=== PATIENT | female | born 2000 | race Caucasian/White ===

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

== ENCOUNTER 2022-12-14 11:13 | Outpatient (CLI) | payer MEDICAID, SELFPAY ==
--- NOTE | 2022-12-14 | US_ITS ---
WS: [id number] OBSTETRICAL ULTRASOUND COMPLETE HISTORY: SUPERVISION OF OTHER NORMAL THIRD TRIMESTER COMPARISON: None available. Single intrauterine gestation in Cephalic presentation. Cervix is Closed and normal length. Cervical length is 3.7 cm. Normal amount of amniotic fluid surrounds the fetus. Placenta: Anterior, no previa or abruption. Placenta grade 1 Heart: 139 BPM. Four chambers are identified. Normal LVOT. The RVOT is more difficult to visualize bu t normal size of the aorta and pulmonary artery. On the 3 vessel tracheal view the SVC is very small caliber. I suspect this is probably due to difficulty obtaining true axial imaging from late gestatio nal age. Anatomy: Limited evaluation of the spine and intracranial structures. spine is posterior during the entire examination. kidneys, stomach and urinary bladder are unremarkable. Limited u mbilical cord insertion site. The abdominal wall is not well seen due to late gestational age. 4 extremities are present. profile: Unremarkable. Gender: Male. measurements: BPD = 8.5 cm = 34w0d; 48th percentile HC = 30.7 cm = 34w1d; 17th percentile AC = 29.3 cm = 33w2d; 32nd percentile FL = 6.5 cm = 33w5d; 31st percentile EFW: 2217 g. 37th percentile Biometry is internally concordant. AGA by ultrasound: 33 weeks 5 days YOLA by ultrasound: 01/27/2023 US/US OB >= 14 weeks fetus [id number] IMPRESSION: 1. Single intrauterine gestation of 33 weeks 5 days with an YOLA of 01/27/2023. 2. Anatomic screening survey is limited by late gestational age. In particular the abdominal wall and cord insertion site, RVOT and spine are poorly vi sualized. Remaining anatomy appears appropriate. 3. Normal amniotic fluid.
== END 2022-12-14 11:14 | disposition home or self-care (01) ==
PROVIDERS: PCP Nurse Practitioner Family; Visit Provider Family Medicine
DX: O26.893 Other specified pregnancy related conditions, third trimester (principal); Z3A.33 33 weeks gestation of pregnancy
CPT/HCPCS: 76805

== ENCOUNTER 2023-01-24 17:50 | Inpatient (IN) | payer MEDICAID, SELFPAY ==
[2023-01-24] VITALS (15 sets, daily range): BP systolic 110–153; BP diastolic 71–88; PULSE 68–106; TEMP 36.7; BMI 35.4
--- NOTE | 2023-01-24 18:14 | P.HP_ITS ---
Providers/Chief Complaint Admitting Physician: Dr. 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 The patient had an unremarkable . labs were unremarkable. GBS was negative. Started having contractions approximately 1:00 this afternoon which intensified at approximately 3:00 this afternoon. brought her down after he got off work at 4:00 and upon arrival the patient was completely dilated. Membranes soon after ruptured and she delivered precipitously a viable infant male within 10 minutes of arrival. Review of Systems General: Reports: 10 or more systems reviewed and unremarkable except in HPI and below Narrative: See HPI Const: Denies: fever(s) Eyes: Denies: change in vision Musc: Reports: extremity pain (Right hand and thumb), joint pain (right thumb) and joint stiffness (right thumb) Skin/Breast: Denies: rash Neuro: Denies: headache(s) Psych: Denies: anxiety [place]/Lymph: Denies: easy bruising All/Imm: Denies: urticaria Medications/Allergies Home Medications Medication Instructions Recorded Confirmed Last Taken Type ibuprofen 800 mg tablet 800 mg PO Q8H PRN pain 30 days #60 08/13/21 08/13/21 Unknown Rx tabs Allergies Allergy/AdvReac Type Severity Reaction Status Date / Time No Known Allergies Allergy Verified 08/13/21 14:41 PFSH INTERACTIVE MARKETING STRATEGIST PFSH: Medical History (Updated 01/24/23 @ 18:21 by Arjun Price MD) Contact dermatitis Right hand pain Trigger thumb of right hand Social History Smoking and tobacco status: never smoked Alcohol intake: never Substance/Drug Use: never Adopted: No Sexually active: No Do you think of yourself as: Straight/Heterosexual Current gender identity: Female Vitals/I&O/Wt Last Vital Signs Pulse 83 01/24/23 18:11 BP 136/87 01/24/23 18:11 Weight last 48 hrs Weight 90.718 kg Physical Exam Narrative: Alert and oriented, no acute regular rate and rhythm no murmurs, nonpitting edema bilaterally, no calf tenderness. Abdomen soft and appropriately tender, Urinary Catheter Management: Wiley: Cath Placed During This Visit: no A&P Assessment and plan (1) Normal spontaneous vaginal delivery: (2) Precipitous delivery: Proceed with routine Attestations Medical Necessity Statement*: Anticipate 1 midnight stay. Admitted for precipitous delivery. Coding Level of Care Code Acute Code for Chg Fwd Diagnoses Normal spontaneous vaginal delivery O80 Precipitous delivery O62.3
[2023-01-24 18:20] LABS: Basophils % 0.2 %; Eosinophils # 0.1 10^3/uL (0.0-0.8); Eosinophils % 0.7 %; Hematocrit 36.3 % (37.0-47.0); Hemoglobin 11.6 g/dL (11.5-15.3); Lymphocytes # 3.1 10^3/uL (1.5-6.5); Lymphocytes % 23.5 %; Mean Corpuscular Hemoglobin 27.3 pg (28.0-34.0); Mean Corpuscular Volume 85.4 fl (81-99); Mean Platelet Volume 11.5 fL (7.4-10.4); Monocytes % 7.6 %; Neutrophils # 8.76 10^3/uL (1.8-8.0); Neutrophils % 67.5 %; Nucleated Red Blood Cells % 0 %; Platelet Count 232 10^3/cmm (130-400); Red Blood Count 4.25 10^6/uL (4.1-5.3); Red Cell Distribution Width 13.3 % (12.1-15.1)
--- NOTE | 2023-01-24 18:22 | PM.DELIVERY ---
Delivery Note: Date of delivery: January 24, 2023 Pre-delivery diagnoses: Term intrauterine Post-delivery diagnoses: Same, viable male Procedure: Spontaneous vaginal delivery Delivering Physician: Augusto Price MD Estimated blood loss (mL): 100 Pre-Delivery Course: Patient presented completely dilated 38 weeks 2 days. Patient ruptured and delivered precipitously soon after Delivery: was placed on mom's belly soon after delivery by nursing staff. Upon my arrival the cord was clamped and cut. Placenta was then delivered by me soon after. Review of the perineum and labia showed a right labial first-degree tear. This tear was sized with lidocaine and running stitch with 2-0 chromic was used to repair. Upon completion of procedure uterus was firm and appropriately tender and bleeding was controlled. A&P Assessment and plan (1) Precipitous delivery: (2) Normal spontaneous vaginal delivery: Coding Level of Care Code Acute Code for Chg Fwd Diagnoses Precipitous delivery O62.3 Normal spontaneous vaginal delivery O80
[2023-01-24] MEDS: lanolin oint 7 gm 1 APPLIC TOPICAL (21:27)
[2023-01-24] MEDS: acetaminophen 325 mg Tablet 650 MG PO (21:28)
[2023-01-25 02:23] VITALS: BP 137/84; PULSE 85; TEMP 36.7
[2023-01-25] MEDS: ibuprofen 800 mg tablet PO ×3 (02:33→19:02)
[2023-01-25 05:36] VITALS: BP 123/77; PULSE 84; TEMP 36.1
[2023-01-25] MEDS: acetaminophen 325 mg Tablet 650 MG PO (05:41)
[2023-01-25 05:43] LABS: Hematocrit 30.5 % (37.0-47.0); Hemoglobin 9.8 g/dL (11.5-15.3); Mean Corpuscular HGB Conc 32.1 g/dL (30.0-36.0); Mean Corpuscular Hemoglobin 27.3 pg (28.0-34.0); Mean Platelet Volume 11.6 fL (7.4-10.4); Platelet Count 184 10^3/cmm (130-400); Red Blood Count 3.59 10^6/uL (4.1-5.3); Red Cell Distribution Width 13.2 % (12.1-15.1); White Blood Count 9.8 10^3/uL (4.5-13.0)
[2023-01-25 10:37] VITALS: BP 142/85; PULSE 86
[2023-01-25 16:28] VITALS: BP 131/76; PULSE 90
[2023-01-25 20:40] VITALS: BP 135/80; PULSE 93
[2023-01-25 20:41] VITALS: TEMP 36.6
[2023-01-26 04:22] VITALS: TEMP 36.2
[2023-01-26 04:23] VITALS: BP 119/77; PULSE 77
--- NOTE | 2023-01-26 07:34 | P.PN_ITS ---
CEPHALOMETRIC ANALYST Subjective Subjective: Interval history: Date of service: January 25, 2023 The patient did well overnight. Patient has no acute concerns this morning. Patient reports some issue with breast-feeding. Pain is well controlled. The patient is ambulating and urinating without difficulty.. Labor: Station: +3 Amniotic Membrane Status: Ruptured Post /CS: Patient comments OB post-: no complaints baby status: doing well Vitals/I&O/Wt Last Vital Signs Temp 97.2 F L 01/26/23 04:22 Pulse 77 01/26/23 04:23 BP 119/77 01/26/23 04:23 O2 Del Method Room Air 01/24/23 18:15 Weight last 48 hrs Weight 90.718 kg Physical Exam Narrative: Alert and oriented, no acute regular rate and rhythm no murmurs, nonpitting edema bilaterally, no calf tenderness. Abdomen soft and appropriately tender, Urinary Catheter Management: Wiley: Cath Placed During This Visit: no Data 01/25/23 05:35 A&P Assessment and plan (1) Normal spontaneous vaginal delivery: Continue with routine care (2) Precipitous delivery: Attestations Medical Necessity Statement*: Admitted for labor and delivery. Dissipate discharge tomorrow Coding Level of Care Code Acute Code for Chg Fwd Diagnoses Normal spontaneous vaginal delivery O80 Precipitous delivery O62.3
--- NOTE | 2023-01-26 07:37 | PM.OBGYDC ---
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 Patient patient had no complications during the delivery. Precipitously delivered a viable male soon after arrival. care was unremarkable except for some mild breast-feeding issues but these have resolved and improved. Information Peripartum Data: Delivery Method: Vaginal Laceration description: Labial Episiotomy description: None complications: none Physical Exam Narrative: Alert and oriented, no acute regular rate and rhythm no murmurs, nonpitting edema bilaterally, no calf tenderness. Abdomen soft and nontender, fundus is firm and U- 2, Urinary Catheter Management: Wiley: Cath Placed During This Visit: no Discharge Data Studies Completed and Pending Laboratory Results WBC 9.8 10^3/uL (4.5-13.0) 01/25/23 05:35 RBC 3.59 10^6/uL (4.1-5.3) L 01/25/23 05:35 Hgb 9.8 g/dL (11.5-15.3) L 01/25/23 05:35 Hct 30.5 % (37.0-47.0) L 01/25/23 05:35 MCV 85.0 fl (81-99) 01/25/23 05:35 MCH 27.3 pg (28.0-34.0) L 01/25/23 05:35 MCHC 32.1 g/dL (30.0-36.0) 01/25/23 05:35 RDW 13.2 % (12.1-15.1) 01/25/23 05:35 Plt Count 184 10^3/cmm (130-400) 01/25/23 05:35 MPV 11.6 fL (7.4-10.4) H 01/25/23 05:35 Neut % (Auto) 67.5 % 01/24/23 18:00 Lymph % (Auto) 23.5 % 01/24/23 18:00 [place] % (Auto) 7.6 % 01/24/23 18:00 Eos % (Auto) 0.7 % 01/24/23 18:00 Baso % (Auto) 0.2 % 01/24/23 18:00 Neut # (Auto) 8.76 10^3/uL (1.8-8.0) H 01/24/23 18:00 Lymph # (Auto) 3.1 10^3/uL (1.5-6.5) 01/24/23 18:00 [place] # (Auto) 1.0 10^3/uL (0.2-0.9) H 01/24/23 18:00 Eos # (Auto) 0.1 10^3/uL (0.0-0.8) 01/24/23 18:00 Baso # (Auto) 0.0 10^3/uL (0.0-0.1) 01/24/23 18:00 Nucleated RBC % (auto) 0 % 01/24/23 18:00 Nucleated RBCs # 0.0 /100WBC 01/24/23 18:00 Vitals Last Vital Signs Temp 97.2 F L 01/26/23 04:22 Pulse 77 01/26/23 04:23 BP 119/77 01/26/23 04:23 O2 Del Method Room Air 01/24/23 18:15 Discharge Plan Discharge Patient Disposition: Home Condition: Stable Prescriptions: Continued ibuprofen 800 mg tablet 800 mg PO Q8H PRN (Reason: pain) 30 Days Qty: 60 2RF Discharge Orders: Discharge Order (Routine); Ordered 01/26/23 Ordered By: Arjun Price Referrals: Marilu Agudelo MD [Physician] - 6 Weeks Discharge Diet: Advance as tolerated Discharge Activity: Limit activity as instructed Patient Instructions: Depression (GEN), Bleeding (GEN), Preeclampsia and Eclampsia After Delivery (GEN), COVID-19 and (GEN), Hemorrhage (GEN), OB Discharge Report, OB Food/Drug Interaction Guide, OB Care at Home, Opioid Safety, OB Home Care, Abnormal Bleeding Discharge Attestations 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
[2023-01-26 08:40] VITALS: BP 129/73; PULSE 92
[2023-01-26 09:00] VITALS: BP 129/73; PULSE 92
== END 2023-01-26 09:00 | disposition home or self-care (01) | DRG 807 ==
LOC: OPOB 01-25 06:23 → OBGYN 01-25 06:24
PROVIDERS: Admitting Provider Family Medicine; PCP Nurse Practitioner Family; Visit Provider Family Medicine
DX: O62.3 Precipitate labor (principal); Z37.0 Single live birth; Z3A.38 38 weeks gestation of pregnancy; O70.0 First degree perineal laceration during delivery
CPT/HCPCS: 36415; 59409; 85025; 85027; 98960; 99211

== ENCOUNTER → 2024-02-14 11:54 | Outpatient (BNVA) | payer MEDICAID, SELFPAY | PROVIDERS: PCP Nurse Practitioner Family; Visit Provider Nurse Practitioner Family | DX: Z13.6 Encounter for screening for cardiovascular disorders (principal); F41.9 Anxiety disorder, unspecified; F32.A Depression, unspecified; D64.9 Anemia, unspecified; Z79.899 Other long term (current) drug therapy; Z34.90 Encounter for supervision of normal pregnancy, unspecified, unspecified trimester | CPT/HCPCS: 80053; 80061; 81003; 81025; 82607; 82728; 83036; 83550; 84439; 84443; 84702; 85025 ==

== ENCOUNTER 2024-09-10 09:11 | Outpatient (CLI) | payer MEDICAID, SELFPAY ==
[2024-09-10 09:28] VITALS: RESP 18; BMI 34.1
[2024-09-10 09:37] VITALS: BP 128/87; PULSE 113
[2024-09-10 10:14] VITALS: BP 128/87; PULSE 98; O2SAT 98
== END 2024-09-10 10:14 | disposition home or self-care (01) ==
LOC: OPOB 09:17 → OBGYN 09:18
PROVIDERS: PCP Nurse Practitioner Family; Visit Provider Family Medicine
DX: O26.899 Other specified pregnancy related conditions, unspecified trimester (principal); Z3A.00 Weeks of gestation of pregnancy not specified; R10.9 Unspecified abdominal pain
CPT/HCPCS: 59025; 99211

== ENCOUNTER 2024-09-23 21:53 | Inpatient (IN) | payer MEDICAID, SELFPAY ==
[2024-09-23 22:00] VITALS: BP 129/80; PULSE 99; RESP 18; TEMP 36.6; TEMP 36.7
[2024-09-23 22:19] VITALS: BP 119/80; PULSE 81
[2024-09-23 22:26] VITALS: BMI 34.7
[2024-09-23 22:34] VITALS: BP 119/87; PULSE 96
[2024-09-23] MEDS: miSOPROStol 100 mcg tablet 25 MCG VAGINAL (22:45)
[2024-09-23 22:48] LABS: Basophils % 0.3 %; Eosinophils # 0.1 10^3/uL (0.0-0.8); Eosinophils % 1.4 %; Hematocrit 34.3 % (36-47); Lymphocytes # 1.9 10^3/uL (0.8-4.8); Lymphocytes % 25.3 %; Mean Corpuscular HGB Conc 32.7 g/dL (30-55); Mean Corpuscular Hemoglobin 26.9 pg (27-33); Mean Corpuscular Volume 82.5 fl (85-98); Mean Platelet Volume 11.4 fL (7.4-10.4); Monocytes # 0.6 10^3/uL (0.2-0.9); Monocytes % 7.7 %; Neutrophils # 4.98 10^3/uL (1.8-7.7); Neutrophils % 64.8 %; Nucleated Red Blood Cells % 0 %; Platelet Count 235 10^3/cmm (157-399); Red Blood Count 4.16 10^6/uL (3.85-5.65); Red Cell Distribution Width 14.4 % (12.1-15.1); White Blood Count 7.68 10^3/uL (3.29-11.43)
[2024-09-23 22:49] VITALS: BP 121/83; PULSE 91
[2024-09-23 23:06] VITALS: BP 127/69; PULSE 100
[2024-09-24] VITALS (17 sets, daily range): BP systolic 102–140; BP diastolic 61–86; PULSE 59–93; RESP 16–18; TEMP 36.6–36.9; O2SAT 98
--- NOTE | 2024-09-24 08:02 | PM.OPHPUD ---
Labor & Delivery H&P Update Date of Procedure: September 24, 2024 Date H&P Performed: 09/20/24 Changes to previous documentation: None Admission Diagnosis: 24-year-old 3 para 2-0-0-2 at 39 weeks and 2 days who lives approximately an hour away from the hospital, with a history of extremely fast labors. Planned procedure: Vaginal delivery Other information: The patient is a pleasant 24-year-old female who has had consistent care and an unremarkable . Her blood type is positive. Her antibody screen is negative. She is rubella immune. She passed her glucose screen. She is rubella nonimmune. She was GBS negative. The remainder of her infectious disease profile was within normal limits. Related Problem List Diagnoses (1) 39 weeks gestation of : (2) History of precipitous labor and delivery: A&P Assessment and plan (1) 39 weeks gestation of : Due to the patient's distance from the hospital and her history of very rapid labors, together with her favorable cervix, the joint decision was made with the patient to induce the patient rather than wait for her to go into labor. Status: Acute (2) History of precipitous labor and delivery: Status: Acute PDMP PDMP Reviewed: Not Reviewed
[2024-09-24] MEDS: sodium chloride 0.9% 1,000 ML 999 ML IV (08:47)
[2024-09-24] MEDS: oxytocin 30 UNIT/500 ML BAG 600 UNIT IV (09:16)
--- NOTE | 2024-09-24 09:21 | PM.DELIVERY ---
Delivery Note: Date of delivery: September 24, 2024 Pre-delivery diagnoses: 24-year-old 3 para 2-0-0-2 at 39 weeks and 3 days Post-delivery diagnoses: Status post precipitous delivery Procedure: Precipitous delivery Delivering Physician: Lisandro Gonzalez Estimated blood loss (mL): 75 Pre-Delivery Course: The patient presented to the hospital for induction due to history of precipitous delivery and living an hour away from the hospital. She was placed on Cytotec 25 mcg x 1. An amniotomy was performed. She then went from 6 to delivery of the baby and about 15 minutes Delivery: DELIVERY: The patient progressed to complete without difficulty. She precipitously delivered a female with a Apgars of 8, 9 with weight of 3530 g. The baby was delivered from the vertex position. The cord was then clamped and cut. There was no nuchal cord. There was no meconium. The placenta and 3 vessel cord were delivered intact shortly thereafter. The perineum and vaginal vault were carefully examined. No lacerations were noted. Both the mother and the baby were in stable condition. Post-Delivery Status: Good A&P Assessment and plan (1) Vaginal delivery: I anticipate routine care. PDMP PDMP Reviewed: Not Reviewed Coding Level of Care Code Acute Code for Chg Fwd Diagnoses Vaginal delivery O80
[2024-09-24] MEDS: docusate sodium 100 mg Capsule PO (17:16)
[2024-09-24] MEDS: ibuprofen 800 mg tablet PO ×2 (17:16→20:57)
[2024-09-24] MEDS: lanolin oint 7 gm 1 APPLIC TOPICAL (20:57)
[2024-09-24 21:23] LABS: Hematocrit 28.7 % (36-47); Mean Corpuscular HGB Conc 32.1 g/dL (30-55); Mean Corpuscular Hemoglobin 26.9 pg (27-33); Mean Corpuscular Volume 83.9 fl (85-98); Mean Platelet Volume 11.3 fL (7.4-10.4); Platelet Count 173 10^3/cmm (157-399); Red Blood Count 3.42 10^6/uL (3.85-5.65); White Blood Count 7.33 10^3/uL (3.29-11.43)
[2024-09-25 05:00] VITALS: BP 128/83; PULSE 70; RESP 18; TEMP 36.8; O2SAT 99
--- NOTE | 2024-09-25 06:44 | P.DS_ITS ---
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 She was placed on Cytotec 25 mcg x 1. An amniotomy was performed. She progressed to complete and had a precipitous delivery without incident. The remainder of her hospital stay has been unremarkable. Her bleeding has been within normal limits. Her pain is been well-controlled. There have been no concerns. Information Peripartum Data: Infant Delivery Method: Vaginal Physical Exam Narrative: The patient is alert. She appears comfortable. Her heart has a regular rate and rhythm with no murmurs appreciated. Lungs are clear to auscultation bilaterally. Her fundus is firm and below the umbilicus. Discharge Data Studies Completed and Pending Laboratory Results WBC 7.33 10^3/uL (3.29-11.43) 09/24/24 21:12 RBC 3.42 10^6/uL (3.85-5.65) L 09/24/24 21:12 Hgb 9.20 g/dL (11.27-16.99) L 09/24/24 21:12 Hct 28.7 % (36-47) L 09/24/24 21:12 MCV 83.9 fl (85-98) L 09/24/24 21:12 MCH 26.9 pg (27-33) L 09/24/24 21:12 MCHC 32.1 g/dL (30-55) 09/24/24 21:12 RDW 14.0 % (12.1-15.1) 09/24/24 21:12 Plt Count 173 10^3/cmm (157-399) 09/24/24 21:12 MPV 11.3 fL (7.4-10.4) H 09/24/24 21:12 Neut % (Auto) 64.8 % 09/23/24 22:15 Lymph % (Auto) 25.3 % 09/23/24 22:15 [place] % (Auto) 7.7 % 09/23/24 22:15 Eos % (Auto) 1.4 % 09/23/24 22:15 Baso % (Auto) 0.3 % 09/23/24 22:15 Neut # (Auto) 4.98 10^3/uL (1.8-7.7) 09/23/24 22:15 Lymph # (Auto) 1.9 10^3/uL (0.8-4.8) 09/23/24 22:15 [place] # (Auto) 0.6 10^3/uL (0.2-0.9) 09/23/24 22:15 Eos # (Auto) 0.1 10^3/uL (0.0-0.8) 09/23/24 22:15 Baso # (Auto) 0.0 10^3/uL (0.0-0.1) 09/23/24 22:15 Nucleated RBC % (auto) 0 % 09/23/24 22:15 Nucleated RBCs # 0.0 /100WBC 09/23/24 22:15 Blood Type O Positive 09/23/24 22:15 Rho(D) Type Rh positive 09/23/24 22:15 Antibody Screen Negative 09/23/24 22:15 Vitals Last Vital Signs Temp 98.3 F 09/25/24 05:00 Pulse 70 09/25/24 05:00 Resp 18 09/25/24 05:00 BP 128/83 09/25/24 05:00 Pulse Ox 99 09/25/24 05:00 O2 Del Method Room Air 09/25/24 05:00 Results Labs OB ([facility]): Blood Type O Positive 09/23/24 Antibody Screen Negative 09/23/24 Hct 28.7 % (36-47) L 09/24/24 Hgb 9.20 g/dL (11.27-16.99) L 09/24/24 Rho(D) Type Rh positive 09/23/24 Plt Count 173 10^3/cmm (157-399) 09/24/24 TSH 0.73 uIU/mL (0.27-4.20) 02/14/24 Free T4 1.43 ng/dL (0.82-1.77) 02/14/24 Hemoglobin A1c 4.8 % (4.0-6.0) 02/14/24 Ser , Semi-Qnt 35754.00 mIU/mL 02/14/24 HCG, Qual Positive (Negative) H 02/14/24 Discharge Plan Discharge Patient Disposition: Home Condition: Stable Prescriptions: New ibuprofen 800 mg Tablet 800 mg PO TID Qty: 45 0RF Continued ferrous sulfate [Iron (ferrous sulfate)] 325 mg (65 mg iron) Tablet 1 mg PO DAILY [id number] 1 mg Tablet 1 tab PO DAILY Discharge Orders: Discharge Order (Routine); Ordered 09/25/24 Ordered By: Lisandro Gonzalez Referrals: Lisandro Gonzalez MD [Physician] - 6 Weeks Discharge Diet: Usual diet Discharge Activity: Limit activity as instructed Patient Instructions: Opioid Safety Discharge 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
[2024-09-25] MEDS: ibuprofen 800 mg tablet PO (10:11)
[2024-09-25] MEDS: PRENATAL VIT NO.130/IRON/FOLIC 1 EACH TABLET PO (10:11)
[2024-09-25] MEDS: docusate sodium 100 mg Capsule PO (10:11)
[2024-09-25 11:30] VITALS: BP 121/69; PULSE 78; RESP 18; TEMP 36.8; O2SAT 98
== END 2024-09-25 11:30 | disposition home or self-care (01) | DRG 807 ==
LOC: OPOB 21:53 → OBGYN 21:53
PROVIDERS: Absent Provider Family Medicine; Admitting Provider Family Medicine; PCP Nurse Practitioner Family; Visit Provider Family Medicine
DX: O62.3 Precipitate labor (principal); Z37.0 Single live birth; Z3A.39 39 weeks gestation of pregnancy
CPT/HCPCS: 36415; 59409; 85025; 85027; 86850; 86900; J2590; J7030

== ENCOUNTER → 2024-12-31 16:20 | Outpatient (BNVA) | payer MEDICAID, SELFPAY | PROVIDERS: PCP Nurse Practitioner Family; Visit Provider Nurse Practitioner Family | DX: R30.9 Painful micturition, unspecified (principal) | CPT/HCPCS: 81003; 87086 ==